=== PATIENT | female | born 1945 | race African-American/Black ===

== ENCOUNTER 2022-03-03 12:13 | Inpatient (IN) | payer MEDICARE ==
[~2022-03-03] VITALS: Ht 167.6 cm; Wt 44.5 kg
[2022-03-03] MEDS ORDERED: PIPERACILLIN/TAZ 3.375G PREMIX 50 ML IV ONE (13:00)
[2022-03-03] MEDS ORDERED: SODIUM CHLORIDE 0.9% 1000ML BAG (SEPSIS BOLUS) IV ONE (13:00)
[2022-03-03] MEDS ORDERED: VANCOMYCIN 1G PREMIX 200 ML IV ONE (13:00)
[2022-03-03 13:40] LABS: INR 1.2; PROTHROMBIN TIME 12.9 sec (9.6-11.0)
[2022-03-03 13:49] LABS: CHLORIDE 113 mEq/L (98-107)
[2022-03-03] MEDS ORDERED: VANCOMYCIN 1GM PMX (XELLIA) 200 ML IV SCH (14:00)
[2022-03-03 15:47] LABS: MEAN CORPUSCULAR HEMOGLOBIN 16.4 pg (28.0-32.0); MEAN PLATELET VOLUME 8.3 fl (7.4-10.4); PLATELET 416 x1000/uL (130-400); RED BLOOD CELL COUNT 3.12 mill/uL (4.2-5.4); RED CELL DISTRIBUTION WIDTH 22.9 % (11.6-14.6)
[2022-03-03 15:57] LABS: HEMOGLOBIN. 5.1 g/dL (12.0-16.0)
[2022-03-03 15:58] LABS: HEMATOCRIT. 19.9 % (36.0-48.0)
[2022-03-03 16:59] LABS: NUCLEATED RED BLOOD CELLS 2 /100 WBC; PLATELET ESTIMATE INCREASED
[2022-03-03] MEDS ORDERED: IOHEXOL-350 100 ML BOTTLE ONE (18:25)
[2022-03-03 20:00] VITALS: BP 119/65
[2022-03-03 22:21] VITALS: BP 113/69
[2022-03-03 22:40] VITALS: BP 122/71
[2022-03-03 22:42] VITALS: BP 119/65
[2022-03-03] MEDS ORDERED: IPRATROPIUM/ALBUTEROL 0.5-3(2.5)MG/3ML NEB HHN PRN (22:45)
[2022-03-03] MEDS ORDERED: ONDANSETRON HCL 4MG/2ML INJ IV PRN (22:45)
[2022-03-03] MEDS ORDERED: DOCUSATE SODIUM 100MG CAPSULE PO PRN (22:45)
[2022-03-03] MEDS ORDERED: MORPHINE SULFATE 2 MG/ML CPJ (NOT FOR IM USE) IV PRN (22:45)
[2022-03-03] MEDS ORDERED: GUAIFENESIN 200MG/10ML SUGAR FREE UDC PO PRN (22:45)
[2022-03-03] MEDS ORDERED: LORAZEPAM 2MG/ML CPJ IV PRN (22:45)
[2022-03-03] MEDS ORDERED: HYDROCODONE/ACETAMINOPHEN 5/325MG TABLET PO PRN (22:45)
[2022-03-03] MEDS ORDERED: CLONIDINE 0.1MG TABLET PO PRN (22:45)
[2022-03-03] MEDS ORDERED: MAGNESIUM/ALUMINUM HYDROXIDE/SIMETHICONE 30ML UDC PO PRN (22:45)
[2022-03-03] MEDS ORDERED: HYDRALAZINE 20MG/ML VIAL IV PRN (22:45)
[2022-03-03] MEDS ORDERED: DIPHENHYDRAMINE 50MG/ML VIAL IV PRN (22:45)
[2022-03-03 23:10] VITALS: BP 123/80
[2022-03-03 23:30] VITALS: BP 119/71
[2022-03-04] VITALS: BP 119/71
[2022-03-04 04:00] VITALS: BP 126/81
[2022-03-04] MEDS: SODIUM CHLORIDE 0.9% INJ 3ML FLUSH IVF SCH ×3 (06:29→22:00)
[2022-03-04 06:51] LABS: HEMATOCRIT. 28.4 % (36.0-48.0); HEMOGLOBIN. 8.7 g/dL (12.0-16.0); MEAN CORPUSCULAR VOLUME 68.9 fL (81.0-99.0); MEAN PLATELET VOLUME 8.1 fl (7.4-10.4); PLATELET 378 x1000/uL (130-400); RED BLOOD CELL COUNT 4.13 mill/uL (4.2-5.4); RED CELL DISTRIBUTION WIDTH 29.6 % (11.6-14.6)
[2022-03-04 07:02] LABS: CHLORIDE 117 mEq/L (98-107)
[2022-03-04 08:00] VITALS: BP 129/78
[2022-03-04 11:38] LABS: NUCLEATED RED BLOOD CELLS 1 /100 WBC
[2022-03-04 11:39] LABS: PLATELET ESTIMATE NORMAL
[2022-03-04 12:00] VITALS: BP 120/71
[2022-03-04 14:13] LABS: TOTAL IRON BINDING CAPACITY 253 ug/dL (250-450)
[2022-03-04 14:46] LABS: VITAMIN B12 SERUM >2000 pg/mL pg/mL (211-911)
[2022-03-04] MEDS: PANTOPRAZOLE SODIUM 40 MG/VIAL IV SCH ×2 (15:46→23:02)
[2022-03-04 16:00] VITALS: BP 135/84
[2022-03-04] MEDS: DEXTROSE 5% WATER 1,000 ML IV SCH (16:12)
[2022-03-04] MEDS: PIPERACILLIN/TAZOBACTAM 3.375 G in DEXTROSE 5% WATER 50 ML IV SCH ×2 (16:18→23:02)
[2022-03-04 16:39] LABS: FERRITIN 266 ng/mL (10-291)
[2022-03-04] MEDS: VANCOMYCIN 750MG PMX (XELLIA) 150 ML IV SCH (17:02)
[2022-03-04 18:55] LABS: HEMATOCRIT 27.5 % (36.0-48.0); HEMOGLOBIN 8.4 g/dL (12.0-16.0)
[2022-03-04 20:00] VITALS: BP 120/75
[2022-03-05] VITALS: BP 113/76
[2022-03-05 01:50] LABS: HEMATOCRIT 29.1 % (36.0-48.0); HEMOGLOBIN 8.9 g/dL (12.0-16.0)
[2022-03-05] MEDS: DEXTROSE 5% WATER 1,000 ML IV SCH ×3 (03:24→21:55)
[2022-03-05 04:00] VITALS: BP 139/86
[2022-03-05] MEDS: SODIUM CHLORIDE 0.9% INJ 3ML FLUSH IVF SCH ×3 (06:00→22:01)
[2022-03-05 06:17] LABS: HEMATOCRIT. 28.5 % (36.0-48.0); HEMOGLOBIN. 8.6 g/dL (12.0-16.0); MEAN CORPUSCULAR HEMOGLOBIN 20.6 pg (28.0-32.0); MEAN CORPUSCULAR VOLUME 68.3 fL (81.0-99.0); MEAN PLATELET VOLUME 8.7 fl (7.4-10.4); PLATELET 341 x1000/uL (130-400); RED BLOOD CELL COUNT 4.18 mill/uL (4.2-5.4); RED CELL DISTRIBUTION WIDTH 29.9 % (11.6-14.6)
[2022-03-05 06:25] LABS: CHLORIDE 114 mEq/L (98-107)
[2022-03-05 08:00] VITALS: BP 98/56
[2022-03-05 09:02] LABS: ATYPICAL LYMPHOCYTES 1; NUCLEATED RED BLOOD CELLS 4 /100 WBC; PLATELET ESTIMATE NORMAL
[2022-03-05] MEDS: PANTOPRAZOLE SODIUM 40 MG/VIAL IV SCH ×2 (10:31→21:55)
[2022-03-05] MEDS: PIPERACILLIN/TAZOBACTAM 3.375 G in DEXTROSE 5% WATER 50 ML IV SCH ×3 (10:31→21:54)
[2022-03-05 12:00] VITALS: BP 108/64
[2022-03-05 12:50] LABS: HEMATOCRIT 28.9 % (36.0-48.0); HEMOGLOBIN 8.7 g/dL (12.0-16.0)
[2022-03-05] MEDS: VANCOMYCIN 750MG PMX (XELLIA) 150 ML IV SCH (14:14)
[2022-03-05 16:00] VITALS: BP 110/62
[2022-03-05 20:00] VITALS: BP 105/70
[2022-03-05] MEDS: MIRTAZAPINE 15MG TABLET PO SCH (21:55)
[2022-03-06] VITALS: BP 112/73
[2022-03-06 04:00] VITALS: BP 109/70
[2022-03-06 04:22] LABS: EOSINOPHILS % 0.2 % (0.0-5.0); HEMATOCRIT. 32.5 % (36.0-48.0); HEMOGLOBIN. 9.3 g/dL (12.0-16.0); LYMPHOCYTES % 8.6 % (20.0-50.0); MEAN CORPUSCULAR HEMOGLOBIN 20.5 pg (28.0-32.0); MEAN CORPUSCULAR VOLUME 71.5 fL (81.0-99.0); MEAN PLATELET VOLUME 8.5 fl (7.4-10.4); NEUTROPHILS % 88.2 % (40.0-76.0); PLATELET 271 x1000/uL (130-400); RED BLOOD CELL COUNT 4.54 mill/uL (4.2-5.4); RED CELL DISTRIBUTION WIDTH 30.4 % (11.6-14.6)
[2022-03-06 04:48] LABS: CHLORIDE 110 mEq/L (98-107); VANCOMYCIN TROUGH 10.5 ug/mL (5.0-10.0)
[2022-03-06] MEDS: PIPERACILLIN/TAZOBACTAM 3.375 G in DEXTROSE 5% WATER 50 ML IV SCH (05:00)
[2022-03-06] MEDS: VANCOMYCIN 750MG PMX (XELLIA) 150 ML IV SCH (05:00)
[2022-03-06] MEDS: SODIUM CHLORIDE 0.9% INJ 3ML FLUSH IVF SCH ×3 (05:01→21:04)
[2022-03-06] MEDS: DEXTROSE 5% WATER 1,000 ML IV SCH ×2 (06:48→18:23)
[2022-03-06 08:00] VITALS: BP 103/66
[2022-03-06] MEDS: PANTOPRAZOLE SODIUM 40 MG/VIAL IV SCH ×2 (09:11→21:03)
[2022-03-06 12:00] VITALS: BP 105/68
[2022-03-06] MEDS: MEROPENEM 1,000 MG in SODIUM CHLORIDE 0.9% 100 ML IV SCH (14:23)
[2022-03-06 16:00] VITALS: BP 103/69
[2022-03-06 20:00] VITALS: BP 101/63
[2022-03-06] MEDS: MIRTAZAPINE 15MG TABLET PO SCH (21:03)
[2022-03-06] MEDS: VANCOMYCIN 500 MG in DEXT 5% WATER 100 ML IV SCH (21:03)
[2022-03-07] VITALS: BP 97/62
[2022-03-07] MEDS: MEROPENEM 1,000 MG in SODIUM CHLORIDE 0.9% 100 ML IV SCH ×2 (02:13→13:54)
[2022-03-07] MEDS: DEXTROSE 5% WATER 1,000 ML IV SCH ×3 (02:14→22:39)
[2022-03-07 04:00] VITALS: BP 100/61
[2022-03-07] MEDS: SODIUM CHLORIDE 0.9% INJ 3ML FLUSH IVF SCH ×3 (05:38→22:40)
[2022-03-07 07:58] LABS: BASOPHILS % 0.2 % (0.0-2.0); EOSINOPHILS % 0.3 % (0.0-5.0); HEMATOCRIT. 25.1 % (36.0-48.0); HEMOGLOBIN. 7.7 g/dL (12.0-16.0); LYMPHOCYTES % 8.9 % (20.0-50.0); MEAN CORPUSCULAR VOLUME 68.6 fL (81.0-99.0); MEAN PLATELET VOLUME 8.7 fl (7.4-10.4); MONOCYTES % 4.2 % (2.0-8.0); NEUTROPHILS % 86.4 % (40.0-76.0); PLATELET 246 x1000/uL (130-400); RED BLOOD CELL COUNT 3.67 mill/uL (4.2-5.4); RED CELL DISTRIBUTION WIDTH 30.9 % (11.6-14.6)
[2022-03-07 08:00] VITALS: BP 98/63
[2022-03-07 08:09] LABS: CHLORIDE 104 mEq/L (98-107)
[2022-03-07] MEDS: VANCOMYCIN 500 MG in DEXT 5% WATER 100 ML IV SCH (08:21)
[2022-03-07] MEDS: PANTOPRAZOLE SODIUM 40 MG/VIAL IV SCH ×2 (08:21→20:33)
[2022-03-07] MEDS ORDERED: POTASSIUM CHLORIDE 20MEQ TABLET SR PO SCH (10:30)
[2022-03-07 12:00] VITALS: BP 111/69
[2022-03-07 16:00] VITALS: BP 109/65
[2022-03-07] MEDS ORDERED: NALOXONE HCL 0.4MG/ML VIAL IV PRN (16:00)
[2022-03-07 20:00] VITALS: BP 102/61
[2022-03-07] MEDS: MIRTAZAPINE 15MG TABLET PO SCH (20:33)
[2022-03-07] MEDS: SERTRALINE HCL 25MG TABLET PO SCH (20:33)
[2022-03-08] VITALS: BP 110/69
[2022-03-08] MEDS: MEROPENEM 1,000 MG in SODIUM CHLORIDE 0.9% 100 ML IV SCH ×2 (01:46→13:04)
[2022-03-08 04:00] VITALS: BP 121/76
[2022-03-08] MEDS: SODIUM CHLORIDE 0.9% INJ 3ML FLUSH IVF SCH ×3 (05:58→21:15)
[2022-03-08 07:24] LABS: HEMATOCRIT. 24.7 % (36.0-48.0); HEMOGLOBIN. 7.6 g/dL (12.0-16.0); MEAN CORPUSCULAR VOLUME 68.2 fL (81.0-99.0); MEAN PLATELET VOLUME 8.6 fl (7.4-10.4); PLATELET 256 x1000/uL (130-400); RED BLOOD CELL COUNT 3.62 mill/uL (4.2-5.4); RED CELL DISTRIBUTION WIDTH 32.1 % (11.6-14.6)
[2022-03-08 07:37] LABS: CHLORIDE 103 mEq/L (98-107)
[2022-03-08 09:02] LABS: PLATELET ESTIMATE NORMAL
[2022-03-08] MEDS: PANTOPRAZOLE SODIUM 40 MG/VIAL IV SCH ×2 (09:34→21:14)
[2022-03-08] MEDS: SERTRALINE HCL 25MG TABLET PO SCH (09:34)
[2022-03-08] MEDS: DEXTROSE 5% WATER 1,000 ML IV SCH ×2 (09:34→18:20)
[2022-03-08 12:00] VITALS: BP 114/68
[2022-03-08] MEDS ORDERED: POTASSIUM CHLORIDE 20MEQ TABLET SR PO NR (14:45)
[2022-03-08 16:00] VITALS: BP 124/60
[2022-03-08 20:00] VITALS: BP 102/53
[2022-03-08] MEDS: MIRTAZAPINE 15MG TABLET PO SCH (21:14)
[2022-03-09] VITALS: BP 116/73
[2022-03-09] MEDS: MEROPENEM 1,000 MG in SODIUM CHLORIDE 0.9% 100 ML IV SCH ×2 (02:04→13:43)
[2022-03-09 04:00] VITALS: BP 112/70
[2022-03-09] MEDS: SODIUM CHLORIDE 0.9% INJ 3ML FLUSH IVF SCH ×3 (05:51→21:23)
[2022-03-09] MEDS: DEXTROSE 5% WATER 1,000 ML IV SCH ×2 (06:02→15:36)
[2022-03-09 07:26] LABS: HEMATOCRIT. 25.6 % (36.0-48.0); HEMOGLOBIN. 7.9 g/dL (12.0-16.0); MEAN CORPUSCULAR HEMOGLOBIN 21.5 pg (28.0-32.0); MEAN CORPUSCULAR VOLUME 69.7 fL (81.0-99.0); MEAN PLATELET VOLUME 8.7 fl (7.4-10.4); PLATELET 287 x1000/uL (130-400); RED BLOOD CELL COUNT 3.67 mill/uL (4.2-5.4); RED CELL DISTRIBUTION WIDTH 32.2 % (11.6-14.6)
[2022-03-09 08:00] VITALS: BP 109/66
[2022-03-09 08:30] LABS: CHLORIDE 103 mEq/L (98-107)
[2022-03-09] MEDS: SERTRALINE HCL 25MG TABLET PO SCH (08:36)
[2022-03-09] MEDS: PANTOPRAZOLE SODIUM 40 MG/VIAL IV SCH ×2 (08:36→21:23)
[2022-03-09 12:00] VITALS: BP 117/62
[2022-03-09] MEDS ORDERED: LIDOCAINE HCL 1% 10 MG/ML 10ML VIAL INJ NR (13:00)
[2022-03-09] MEDS: SODIUM HYPOCHLORITE 0.125% 473ML SOLUTION TOP SCH ×2 (13:00→21:00)
[2022-03-09 14:41] LABS: PLATELET ESTIMATE NORMAL
[2022-03-09 16:00] VITALS: BP 103/62
[2022-03-09 20:00] VITALS: BP 104/67
[2022-03-09] MEDS: MIRTAZAPINE 15MG TABLET PO SCH (21:23)
[2022-03-10] VITALS (8 sets, daily range): BP systolic 98–124; BP diastolic 59–75
[2022-03-10] MEDS: DEXTROSE 5% WATER 1,000 ML IV SCH ×3 (01:55→20:45)
[2022-03-10] MEDS: MEROPENEM 1,000 MG in SODIUM CHLORIDE 0.9% 100 ML IV SCH ×2 (01:56→14:11)
[2022-03-10] MEDS: SODIUM CHLORIDE 0.9% INJ 3ML FLUSH IVF SCH ×3 (06:05→21:49)
[2022-03-10 07:51] LABS: HEMATOCRIT. 23.6 % (36.0-48.0); HEMOGLOBIN. 7.1 g/dL (12.0-16.0); MEAN CORPUSCULAR HEMOGLOBIN 21.4 pg (28.0-32.0); MEAN CORPUSCULAR VOLUME 70.9 fL (81.0-99.0); MEAN PLATELET VOLUME 8.5 fl (7.4-10.4); PLATELET 290 x1000/uL (130-400); RED BLOOD CELL COUNT 3.32 mill/uL (4.2-5.4); RED CELL DISTRIBUTION WIDTH 32.6 % (11.6-14.6)
[2022-03-10 08:07] LABS: CHLORIDE 103 mEq/L (98-107)
[2022-03-10] MEDS: PANTOPRAZOLE SODIUM 40 MG/VIAL IV SCH ×2 (08:13→20:44)
[2022-03-10] MEDS: SERTRALINE HCL 25MG TABLET PO SCH (08:13)
[2022-03-10] MEDS: SODIUM HYPOCHLORITE 0.125% 473ML SOLUTION TOP SCH ×2 (09:00→17:00)
[2022-03-10 14:51] LABS: PLATELET ESTIMATE NORMAL
[2022-03-10] MEDS: ACETAMINOPHEN 325MG TABLET PO PRN (17:03)
[2022-03-10] MEDS: MIRTAZAPINE 15MG TABLET PO SCH (20:45)
[2022-03-11] VITALS (9 sets, daily range): BP systolic 99–118; BP diastolic 59–76
[2022-03-11] MEDS: MEROPENEM 1,000 MG in SODIUM CHLORIDE 0.9% 100 ML IV SCH ×2 (02:46→14:54)
[2022-03-11] MEDS: SODIUM CHLORIDE 0.9% INJ 3ML FLUSH IVF SCH ×3 (06:05→22:00)
[2022-03-11] MEDS: DEXTROSE 5% WATER 1,000 ML IV SCH ×2 (06:06→16:14)
[2022-03-11 07:32] LABS: INR 1.2; PROTHROMBIN TIME 12.7 sec (9.6-11.0)
[2022-03-11 07:56] LABS: CHLORIDE 105 mEq/L (98-107)
[2022-03-11] MEDS: SERTRALINE HCL 25MG TABLET PO SCH (09:35)
[2022-03-11] MEDS: PANTOPRAZOLE SODIUM 40 MG/VIAL IV SCH ×2 (09:35→21:11)
[2022-03-11 10:15] LABS: BASOPHILS % 0.2 % (0.0-2.0); EOSINOPHILS % 0.2 % (0.0-5.0); HEMATOCRIT. 26.2 % (36.0-48.0); HEMOGLOBIN. 8.3 g/dL (12.0-16.0); LYMPHOCYTES % 8.4 % (20.0-50.0); MEAN CORPUSCULAR HEMOGLOBIN 22.6 pg (28.0-32.0); MEAN CORPUSCULAR VOLUME 71.1 fL (81.0-99.0); MEAN PLATELET VOLUME 8.8 fl (7.4-10.4); MONOCYTES % 3.9 % (2.0-8.0); NEUTROPHILS % 87.3 % (40.0-76.0); PLATELET 284 x1000/uL (130-400); RED BLOOD CELL COUNT 3.69 mill/uL (4.2-5.4); RED CELL DISTRIBUTION WIDTH 30.5 % (11.6-14.6)
[2022-03-11] MEDS: ACETAMINOPHEN 325MG TABLET PO PRN ×2 (13:37→21:12)
[2022-03-11] MEDS ORDERED: CEFTRIAXONE 1 G PREMIX 50 ML IV SCH (14:30)
[2022-03-11] MEDS: CEFTRIAXONE 1,000 MG in DEXTROSE 5% WATER 50 ML IV SCH (16:14)
[2022-03-11] MEDS ORDERED: DIATR MEGLU/DIATRIZOATE SOLN 30ML PO SCH (16:33)
[2022-03-11] MEDS: MIRTAZAPINE 15MG TABLET PO SCH (21:11)
[2022-03-11] MEDS: METRONIDAZOLE 500MG TABLET PO SCH (21:11)
[2022-03-12] VITALS: BP 100/58
[2022-03-12 04:00] VITALS: BP 99/64
[2022-03-12] MEDS: DEXTROSE 5% WATER 1,000 ML IV SCH ×2 (05:48→12:39)
[2022-03-12] MEDS: METRONIDAZOLE 500MG TABLET PO SCH ×3 (05:52→22:04)
[2022-03-12] MEDS: SODIUM CHLORIDE 0.9% INJ 3ML FLUSH IVF SCH ×3 (05:52→22:04)
[2022-03-12 07:35] LABS: CHLORIDE 105 mEq/L (98-107)
[2022-03-12 08:20] LABS: BASOPHILS % 0.1 % (0.0-2.0); EOSINOPHILS % 0.4 % (0.0-5.0); HEMATOCRIT. 31.9 % (36.0-48.0); HEMOGLOBIN. 9.8 g/dL (12.0-16.0); MEAN CORPUSCULAR HEMOGLOBIN 23.3 pg (28.0-32.0); MEAN CORPUSCULAR VOLUME 75.8 fL (81.0-99.0); MEAN PLATELET VOLUME 8.5 fl (7.4-10.4); MONOCYTES % 4.3 % (2.0-8.0); NEUTROPHILS % 87.2 % (40.0-76.0); PLATELET 296 x1000/uL (130-400); RED BLOOD CELL COUNT 4.21 mill/uL (4.2-5.4)
[2022-03-12] MEDS: PANTOPRAZOLE SODIUM 40 MG/VIAL IV SCH ×2 (08:36→20:29)
[2022-03-12] MEDS: SERTRALINE HCL 25MG TABLET PO SCH (08:36)
[2022-03-12 12:00] VITALS: BP 104/67
[2022-03-12] MEDS ORDERED: DIATR MEGLU/DIATRIZOATE SOLN 30ML PO NR (12:00)
[2022-03-12 12:55] LABS: PLATELET ESTIMATE NORMAL
[2022-03-12] MEDS: CEFTRIAXONE 1,000 MG in DEXTROSE 5% WATER 50 ML IV SCH (14:16)
[2022-03-12 16:00] VITALS: BP 97/69
[2022-03-12] MEDS ORDERED: DEXTROSE 50% WATER 50ML SYRINGE IV PRN (16:15)
[2022-03-12] MEDS: DOCUSATE SODIUM 100MG CAPSULE PO SCH (17:14)
[2022-03-12] MEDS: MEGESTROL ACETATE 400 MG/10 ML UDC PO SCH (17:14)
[2022-03-12] MEDS: MULTIVITAMINS,THER W-MINERALS TABLET PO SCH (17:14)
[2022-03-12] MEDS: DEXT 5%/0.9% NACL 1,000 ML IV SCH (17:14)
[2022-03-12] MEDS: ASCORBIC ACID 500 MG TABLET PO SCH (17:14)
[2022-03-12] MEDS: ZINC SULFATE 220 MG ( 50 ) CAPSULE PO SCH (17:14)
[2022-03-12] MEDS: BLOOD SUGAR DIAGNOSTIC STRIP TEST SCH (18:24)
[2022-03-12 20:09] VITALS: BP 102/69
[2022-03-12] MEDS: MIRTAZAPINE 15MG TABLET PO SCH (20:29)
[2022-03-13] VITALS: BP_SYST 111; BP_DIAS 73; BP_DIAS 75
[2022-03-13] MEDS: DEXT 5%/0.9% NACL 1,000 ML IV SCH ×3 (03:26→23:00)
[2022-03-13 04:00] VITALS: BP 114/72
[2022-03-13] MEDS: SODIUM CHLORIDE 0.9% INJ 3ML FLUSH IVF SCH ×3 (05:13→21:29)
[2022-03-13] MEDS: METRONIDAZOLE 500MG TABLET PO SCH ×3 (05:13→21:29)
[2022-03-13 07:39] LABS: BASOPHILS % 0.2 % (0.0-2.0); EOSINOPHILS % 0.4 % (0.0-5.0); HEMATOCRIT. 30.3 % (36.0-48.0); HEMOGLOBIN. 9.6 g/dL (12.0-16.0); LYMPHOCYTES % 10.8 % (20.0-50.0); MEAN CORPUSCULAR HEMOGLOBIN 22.8 pg (28.0-32.0); MEAN CORPUSCULAR VOLUME 72.4 fL (81.0-99.0); MEAN PLATELET VOLUME 8.4 fl (7.4-10.4); MONOCYTES % 5.3 % (2.0-8.0); NEUTROPHILS % 83.3 % (40.0-76.0); PLATELET 318 x1000/uL (130-400); RED BLOOD CELL COUNT 4.19 mill/uL (4.2-5.4); RED CELL DISTRIBUTION WIDTH 30.8 % (11.6-14.6)
[2022-03-13 07:54] LABS: CHLORIDE 107 mEq/L (98-107)
[2022-03-13 08:00] VITALS: BP 103/63
[2022-03-13] MEDS: PANTOPRAZOLE SODIUM 40 MG/VIAL IV SCH ×2 (08:25→21:29)
[2022-03-13] MEDS: MULTIVITAMINS,THER W-MINERALS TABLET PO SCH (08:25)
[2022-03-13] MEDS: ASCORBIC ACID 500 MG TABLET PO SCH (08:25)
[2022-03-13] MEDS: MEGESTROL ACETATE 400 MG/10 ML UDC PO SCH (08:25)
[2022-03-13] MEDS: DOCUSATE SODIUM 100MG CAPSULE PO SCH ×2 (08:25→17:15)
[2022-03-13] MEDS: SERTRALINE HCL 25MG TABLET PO SCH (08:25)
[2022-03-13] MEDS: ZINC SULFATE 220 MG ( 50 ) CAPSULE PO SCH (08:25)
[2022-03-13 12:00] VITALS: BP 102/62
[2022-03-13] MEDS: ACETAMINOPHEN 325MG TABLET PO PRN (12:35)
[2022-03-13] MEDS: CEFTRIAXONE 1,000 MG in DEXTROSE 5% WATER 50 ML IV SCH (13:26)
[2022-03-13 16:00] VITALS: BP 96/58
[2022-03-13] MEDS: BLOOD SUGAR DIAGNOSTIC STRIP TEST SCH (17:16)
[2022-03-13 20:00] VITALS: BP 95/60
[2022-03-13] MEDS: MIRTAZAPINE 15MG TABLET PO SCH (21:29)
[2022-03-14] VITALS: BP 127/70
[2022-03-14 04:00] VITALS: BP 122/70
[2022-03-14] MEDS: METRONIDAZOLE 500MG TABLET PO SCH ×3 (06:20→21:00)
[2022-03-14] MEDS: SODIUM CHLORIDE 0.9% INJ 3ML FLUSH IVF SCH ×3 (06:20→21:00)
[2022-03-14 08:00] VITALS: BP 119/67
[2022-03-14] MEDS: MULTIVITAMINS,THER W-MINERALS TABLET PO SCH (09:36)
[2022-03-14] MEDS: MEGESTROL ACETATE 400 MG/10 ML UDC PO SCH (09:36)
[2022-03-14] MEDS: PANTOPRAZOLE SODIUM 40 MG/VIAL IV SCH ×2 (09:36→21:00)
[2022-03-14] MEDS: ZINC SULFATE 220 MG ( 50 ) CAPSULE PO SCH (09:37)
[2022-03-14] MEDS: ASCORBIC ACID 500 MG TABLET PO SCH (09:37)
[2022-03-14] MEDS: DOCUSATE SODIUM 100MG CAPSULE PO SCH ×2 (09:37→17:00)
[2022-03-14] MEDS: SERTRALINE HCL 25MG TABLET PO SCH (09:37)
[2022-03-14] MEDS: DEXT 5%/0.9% NACL 1,000 ML IV SCH ×3 (09:37→21:00)
[2022-03-14 12:00] VITALS: BP 113/70
[2022-03-14] MEDS: CEFTRIAXONE 1,000 MG in DEXTROSE 5% WATER 50 ML IV SCH (14:02)
[2022-03-14 16:00] VITALS: BP 99/62
[2022-03-14] MEDS: BLOOD SUGAR DIAGNOSTIC STRIP TEST SCH (17:58)
[2022-03-14 20:00] VITALS: BP 100/62
[2022-03-14] MEDS: MIRTAZAPINE 15MG TABLET PO SCH (21:00)
[2022-03-15] VITALS: BP 116/66
[2022-03-15 04:00] VITALS: BP 109/68
[2022-03-15] MEDS: SODIUM CHLORIDE 0.9% INJ 3ML FLUSH IVF SCH ×3 (05:52→21:00)
[2022-03-15] MEDS: METRONIDAZOLE 500MG TABLET PO SCH ×3 (05:52→21:00)
[2022-03-15 08:00] VITALS: BP 102/66
[2022-03-15] MEDS: DOCUSATE SODIUM 100MG CAPSULE PO SCH ×3 (09:00→16:54)
[2022-03-15] MEDS: PANTOPRAZOLE SODIUM 40 MG/VIAL IV SCH ×2 (09:58→21:00)
[2022-03-15] MEDS: SERTRALINE HCL 25MG TABLET PO SCH (09:59)
[2022-03-15] MEDS: ZINC SULFATE 220 MG ( 50 ) CAPSULE PO SCH (09:59)
[2022-03-15] MEDS: MULTIVITAMINS,THER W-MINERALS TABLET PO SCH (09:59)
[2022-03-15] MEDS: MEGESTROL ACETATE 400 MG/10 ML UDC PO SCH (09:59)
[2022-03-15] MEDS: ASCORBIC ACID 500 MG TABLET PO SCH (10:06)
[2022-03-15 12:00] VITALS: BP 103/76
[2022-03-15] MEDS: CEFTRIAXONE 1,000 MG in DEXTROSE 5% WATER 50 ML IV SCH (14:28)
[2022-03-15 16:00] VITALS: BP 101/57
[2022-03-15] MEDS: DEXT 5%/0.9% NACL 1,000 ML IV SCH ×2 (16:07→23:56)
[2022-03-15] MEDS: BLOOD SUGAR DIAGNOSTIC STRIP TEST SCH (18:10)
[2022-03-15 20:00] VITALS: BP 113/62
[2022-03-15] MEDS: MIRTAZAPINE 15MG TABLET PO SCH (21:00)
[2022-03-16] VITALS (17 sets, daily range): BP systolic 106–132; BP diastolic 57–78
[2022-03-16] MEDS: SODIUM CHLORIDE 0.9% INJ 3ML FLUSH IVF SCH ×3 (05:02→20:49)
[2022-03-16] MEDS: METRONIDAZOLE 500MG TABLET PO SCH ×3 (05:02→20:49)
[2022-03-16 06:04] LABS: INR 1.4; PROTHROMBIN TIME 14.3 sec (9.6-11.0)
[2022-03-16] MEDS ORDERED: LIDOCAINE HCL 1% 20ML VIAL (Pyxis) INJ ONE (08:07)
[2022-03-16] MEDS: DOCUSATE SODIUM 100MG CAPSULE PO SCH ×2 (09:00→17:00)
[2022-03-16] MEDS ORDERED: SODIUM BICARBONATE 4% (2.4MEQ) 5ML VIAL IV ONE (09:10)
[2022-03-16] MEDS ORDERED: FENTANYL CITRATE/PF 50MCG/ML 2ML VIAL ONE (09:11)
[2022-03-16] MEDS ORDERED: LIDOCAINE HCL 1% 10 MG/ML 10ML VIAL ONE (09:44)
[2022-03-16] MEDS ORDERED: FENTANYL CITRATE/PF 50MCG/ML 2ML VIAL IV ONE (11:00)
[2022-03-16] MEDS: PANTOPRAZOLE SODIUM 40 MG/VIAL IV SCH ×2 (13:02→20:48)
[2022-03-16] MEDS: MEGESTROL ACETATE 400 MG/10 ML UDC PO SCH (13:02)
[2022-03-16] MEDS: SERTRALINE HCL 25MG TABLET PO SCH (13:03)
[2022-03-16] MEDS: ZINC SULFATE 220 MG ( 50 ) CAPSULE PO SCH (13:03)
[2022-03-16] MEDS: ASCORBIC ACID 500 MG TABLET PO SCH (13:03)
[2022-03-16] MEDS: MULTIVITAMINS,THER W-MINERALS TABLET PO SCH (13:03)
[2022-03-16] MEDS: CEFTRIAXONE 1,000 MG in DEXTROSE 5% WATER 50 ML IV SCH (14:22)
[2022-03-16 14:40] LABS: HEMOGLOBIN 8.3 g/dL (12.0-16.0)
[2022-03-16] MEDS: BLOOD SUGAR DIAGNOSTIC STRIP TEST SCH (18:58)
[2022-03-16] MEDS: DEXT 5%/0.9% NACL 1,000 ML IV SCH (20:48)
[2022-03-16] MEDS: MIRTAZAPINE 15MG TABLET PO SCH (20:49)
[2022-03-16] MEDS: ACETAMINOPHEN 325MG TABLET PO PRN (21:13)
[2022-03-17] VITALS: BP 126/72
[2022-03-17 04:00] VITALS: BP 122/69
[2022-03-17] MEDS: SODIUM CHLORIDE 0.9% INJ 3ML FLUSH IVF SCH ×3 (06:38→21:03)
[2022-03-17] MEDS: METRONIDAZOLE 500MG TABLET PO SCH ×3 (06:39→21:03)
[2022-03-17] MEDS: DEXT 5%/0.9% NACL 1,000 ML IV SCH ×2 (06:39→21:03)
[2022-03-17 06:45] LABS: BASOPHILS % 0.2 % (0.0-2.0); EOSINOPHILS % 0.6 % (0.0-5.0); HEMATOCRIT. 24.2 % (36.0-48.0); HEMOGLOBIN. 7.6 g/dL (12.0-16.0); LYMPHOCYTES % 12.3 % (20.0-50.0); MEAN CORPUSCULAR HEMOGLOBIN 23.4 pg (28.0-32.0); MEAN CORPUSCULAR VOLUME 74.3 fL (81.0-99.0); MEAN PLATELET VOLUME 7.9 fl (7.4-10.4); MONOCYTES % 4.8 % (2.0-8.0); NEUTROPHILS % 82.1 % (40.0-76.0); PLATELET 199 x1000/uL (130-400); RED BLOOD CELL COUNT 3.26 mill/uL (4.2-5.4); RED CELL DISTRIBUTION WIDTH 31.8 % (11.6-14.6)
[2022-03-17 07:03] LABS: CHLORIDE 117 mEq/L (98-107)
[2022-03-17 08:00] VITALS: BP 114/63
[2022-03-17] MEDS: DOCUSATE SODIUM 100MG CAPSULE PO SCH ×2 (09:00→17:00)
[2022-03-17] MEDS: PANTOPRAZOLE SODIUM 40 MG/VIAL IV SCH ×2 (09:14→21:03)
[2022-03-17] MEDS: ZINC SULFATE 220 MG ( 50 ) CAPSULE PO SCH (09:16)
[2022-03-17] MEDS: MEGESTROL ACETATE 400 MG/10 ML UDC PO SCH (09:16)
[2022-03-17] MEDS: MULTIVITAMINS,THER W-MINERALS TABLET PO SCH (09:17)
[2022-03-17] MEDS: SERTRALINE HCL 25MG TABLET PO SCH (09:17)
[2022-03-17] MEDS: ASCORBIC ACID 500 MG TABLET PO SCH (09:17)
[2022-03-17] MEDS ORDERED: POTASSIUM CHLORIDE 20MEQ TABLET SR PO NR (10:00)
[2022-03-17 12:00] VITALS: BP 106/69
[2022-03-17] MEDS: CEFTRIAXONE 1,000 MG in DEXTROSE 5% WATER 50 ML IV SCH (13:51)
[2022-03-17 16:00] VITALS: BP 111/70
[2022-03-17] MEDS: ACETAMINOPHEN 325MG TABLET PO PRN (18:45)
[2022-03-17] MEDS: BLOOD SUGAR DIAGNOSTIC STRIP TEST SCH (18:45)
[2022-03-17 20:00] VITALS: BP 97/47
[2022-03-17] MEDS: MIRTAZAPINE 15MG TABLET PO SCH (21:03)
[2022-03-18] VITALS: BP 98/56
[2022-03-18] MEDS: DEXT 5%/0.9% NACL 1,000 ML IV SCH ×3 (02:45→22:32)
[2022-03-18 04:00] VITALS: BP 118/67
[2022-03-18] MEDS: SODIUM CHLORIDE 0.9% INJ 3ML FLUSH IVF SCH ×3 (06:39→21:42)
[2022-03-18] MEDS: METRONIDAZOLE 500MG TABLET PO SCH ×3 (06:39→21:42)
[2022-03-18 07:50] LABS: BASOPHILS % 0.2 % (0.0-2.0); EOSINOPHILS % 0.2 % (0.0-5.0); HEMATOCRIT. 25.2 % (36.0-48.0); LYMPHOCYTES % 10.2 % (20.0-50.0); MEAN CORPUSCULAR HEMOGLOBIN 23.4 pg (28.0-32.0); MEAN CORPUSCULAR VOLUME 74.3 fL (81.0-99.0); MEAN PLATELET VOLUME 8.6 fl (7.4-10.4); NEUTROPHILS % 84.4 % (40.0-76.0); PLATELET 162 x1000/uL (130-400); RED CELL DISTRIBUTION WIDTH 31.4 % (11.6-14.6)
[2022-03-18 08:09] LABS: CHLORIDE 119 mEq/L (98-107)
[2022-03-18] MEDS: DOCUSATE SODIUM 100MG CAPSULE PO SCH ×2 (09:00→16:31)
[2022-03-18] MEDS: SERTRALINE HCL 25MG TABLET PO SCH (09:29)
[2022-03-18] MEDS: ZINC SULFATE 220 MG ( 50 ) CAPSULE PO SCH (09:29)
[2022-03-18] MEDS: MEGESTROL ACETATE 400 MG/10 ML UDC PO SCH (09:29)
[2022-03-18] MEDS: ASCORBIC ACID 500 MG TABLET PO SCH (09:29)
[2022-03-18] MEDS: MULTIVITAMINS,THER W-MINERALS TABLET PO SCH (09:29)
[2022-03-18] MEDS: PANTOPRAZOLE SODIUM 40 MG/VIAL IV SCH ×2 (09:30→21:42)
[2022-03-18 12:00] VITALS: BP_SYST 112; BP_SYST 114; BP_DIAS 68; BP_DIAS 71
[2022-03-18] MEDS ORDERED: POTASSIUM CHLORIDE 20MEQ TABLET SR PO NR (13:15)
[2022-03-18] MEDS: CEFTRIAXONE 1,000 MG in DEXTROSE 5% WATER 50 ML IV SCH (13:27)
[2022-03-18 16:00] VITALS: BP 117/67
[2022-03-18] MEDS: BLOOD SUGAR DIAGNOSTIC STRIP TEST SCH (18:00)
[2022-03-18 20:00] VITALS: BP 110/69
[2022-03-18] MEDS: MIRTAZAPINE 15MG TABLET PO SCH (21:42)
[2022-03-19] VITALS (8 sets, daily range): BP systolic 113–132; BP diastolic 67–87
[2022-03-19] MEDS: SODIUM CHLORIDE 0.9% INJ 3ML FLUSH IVF SCH ×3 (06:17→21:03)
[2022-03-19] MEDS: METRONIDAZOLE 500MG TABLET PO SCH ×3 (06:17→21:02)
[2022-03-19 06:49] LABS: BASOPHILS % 0.2 % (0.0-2.0); EOSINOPHILS % 0.4 % (0.0-5.0); HEMATOCRIT. 27.9 % (36.0-48.0); HEMOGLOBIN. 8.3 g/dL (12.0-16.0); LYMPHOCYTES % 11.4 % (20.0-50.0); MEAN CORPUSCULAR HEMOGLOBIN 23.3 pg (28.0-32.0); MEAN PLATELET VOLUME 10.5 fl (7.4-10.4); MONOCYTES % 5.3 % (2.0-8.0); NEUTROPHILS % 82.7 % (40.0-76.0); PLATELET 221 x1000/uL (130-400); RED BLOOD CELL COUNT 3.57 mill/uL (4.2-5.4); RED CELL DISTRIBUTION WIDTH 32.8 % (11.6-14.6)
[2022-03-19 08:02] LABS: PLATELET ESTIMATE NORMAL
[2022-03-19] MEDS: PANTOPRAZOLE SODIUM 40 MG/VIAL IV SCH ×2 (08:47→21:02)
[2022-03-19] MEDS: SERTRALINE HCL 25MG TABLET PO SCH (08:48)
[2022-03-19] MEDS: DEXT 5%/0.9% NACL 1,000 ML IV SCH (08:48)
[2022-03-19] MEDS: DOCUSATE SODIUM 100MG CAPSULE PO SCH ×2 (08:48→17:00)
[2022-03-19] MEDS: MEGESTROL ACETATE 400 MG/10 ML UDC PO SCH (08:48)
[2022-03-19] MEDS: ASCORBIC ACID 500 MG TABLET PO SCH (08:48)
[2022-03-19] MEDS: ZINC SULFATE 220 MG ( 50 ) CAPSULE PO SCH (08:48)
[2022-03-19] MEDS: MULTIVITAMINS,THER W-MINERALS TABLET PO SCH (08:48)
[2022-03-19] MEDS ORDERED: LIDOCAINE HCL 1% 10 MG/ML 10ML VIAL INJ SCH (09:45)
[2022-03-19 10:18] LABS: CHLORIDE 124 mEq/L (98-107)
[2022-03-19] MEDS ORDERED: MORPHINE SULFATE 2 MG/ML CPJ (NOT FOR IM USE) IV PRN (13:00)
[2022-03-19] MEDS: HYDROCODONE/ACETAMINOPHEN 10/325MG TABLET PO PRN ×2 (14:09→20:35)
[2022-03-19] MEDS: CEFTRIAXONE 1,000 MG in DEXTROSE 5% WATER 50 ML IV SCH (14:09)
[2022-03-19] MEDS: MIRTAZAPINE 15MG TABLET PO SCH (21:02)
== END 2022-03-19 21:03 | DRG 853 ==
LOC: ER 12:13 → 7EST 15:20 → EDBEDREQ 15:30 → ENRESERV 18:03
PROVIDERS: ADMIT Internal Medicine; ATTEND Internal Medicine
PROC: 30233N1 Transfusion of Nonautologous Red Blood Cells into Peripheral Vein, Percutaneous Approach (ICD-10-PCS; principal; 2022-03-03)
PROC: 0KBK0ZZ Excision of Right Abdomen Muscle, Open Approach (ICD-10-PCS; 2022-03-04)
PROC: 0KBQ0ZZ Excision of Right Upper Leg Muscle, Open Approach (ICD-10-PCS; 2022-03-09)
PROC: 02HV33Z Insertion of Infusion Device into Superior Vena Cava, Percutaneous Approach (ICD-10-PCS; 2022-03-16)
PROC: B548ZZA Ultrasonography of Superior Vena Cava, Guidance (ICD-10-PCS; 2022-03-16)
PROC: B5181ZA Fluoroscopy of Superior Vena Cava using Low Osmolar Contrast, Guidance (ICD-10-PCS; 2022-03-16)
PROC: 0FB13ZX Excision of Right Lobe Liver, Percutaneous Approach, Diagnostic (ICD-10-PCS; 2022-03-16)
PROC: 0Y9C0ZZ Drainage of Right Upper Leg, Open Approach (ICD-10-PCS; 2022-03-19)
DX: A41.4 Sepsis due to anaerobes (principal); E43 Unspecified severe protein-calorie malnutrition; J18.9 Pneumonia, unspecified organism; R65.21 Severe sepsis with septic shock; J96.01 Acute respiratory failure with hypoxia; E87.0 Hyperosmolality and hypernatremia; L02.211 Cutaneous abscess of abdominal wall; L02.214 Cutaneous abscess of groin; L03.311 Cellulitis of abdominal wall; C18.2 Malignant neoplasm of ascending colon; C78.7 Secondary malignant neoplasm of liver and intrahepatic bile duct; Z66 Do not resuscitate; A41.51 Sepsis due to Escherichia coli [E. coli]; E86.0 Dehydration; R62.7 Adult failure to thrive; D50.9 Iron deficiency anemia, unspecified; Z60.2 Problems related to living alone; R74.01 Elevation of levels of liver transaminase levels; E16.2 Hypoglycemia, unspecified; F43.20 Adjustment disorder, unspecified; Z20.822 Contact with and (suspected) exposure to COVID-19; Z51.5 Encounter for palliative care; Z87.891 Personal history of nicotine dependence; Z80.9 Family history of malignant neoplasm, unspecified
CPT/HCPCS: 36415; 36573; 71045; 71275; 74018; 74176; 76942; 80048; 80053; 80202; 82040; 82105; 82378; 82607; 82728; 82746; 82962; 83540; 83550; 83605; 83880; 84134; 84145; 84443; 84484; 85014; 85018; 85025; 85044; 85379; 85384; 86301; 86850; 86900; 86920; 87070; 87077; 87186; 87426; 88307; 88313; 93005; 93970; 97162; 97530; 99291; C1725; C1893; C9113; J0696; J2185; J2270; J2543; J3010; J3370; J3490; J7030; J7042; J7050; J7060; J7070; P9016; Q9963; Q9967; A4315